=== PATIENT | male | born 1960 ===

== ENCOUNTER 2017-04-23 09:15 | Outpatient (CLI) | payer OTHER | END 2017-04-23 10:15 | disposition home or self-care (01) | LOC: ECT 09:15 | DX: F32.3 Major depressive disorder, single episode, severe with psychotic features (principal); I10 Essential (primary) hypertension; Z79.82 Long term (current) use of aspirin; R73.03 Prediabetes ==

== ENCOUNTER → 2017-04-26 | Outpatient (RCR) | payer OTHER ==
[~2017-04-26] VITALS: Ht 185.4 cm; Wt 105.8 kg
[~2017-04-26] MED LIST: Methohexital Sodium Syr 100mg/10ml IVP ONE; Midazolam 2mg/2ml Inj ONE; Succinylcholine 20mg/ml 10ml vial ONE
== END | disposition home or self-care (01) ==
LOC: ECT 07:01
DX: F32.3 Major depressive disorder, single episode, severe with psychotic features (principal)
CPT/HCPCS: 90870; J0330; J2250

== ENCOUNTER 2017-04-28 05:25 | Outpatient (RCR) | payer OTHER ==
[~2017-04-28] VITALS: Ht 185.4 cm; Wt 105.8 kg
[2017-04-28] MEDS ORDERED: Methohexital Sodium Syr 100mg/10ml IVP ONE ×2 (05:26)
[2017-04-28] MEDS ORDERED: Midazolam 2mg/2ml Inj ONE ×2 (05:26)
[2017-04-28] MEDS ORDERED: Succinylcholine 20mg/ml 10ml vial ONE ×2 (05:26)
[2017-04-28] MEDS ORDERED: NS 550ML IV ONE (05:26)
[2017-04-28] MEDS ORDERED: Ketorolac 60mg Inj ONE ×2 (05:26)
[2017-05-03] MEDS ORDERED: Ketorolac 60mg Inj ONE (07:00)
[2017-05-03] MEDS ORDERED: Methohexital Sodium Syr 100mg/10ml IVP ONE (07:00)
[2017-05-03] MEDS ORDERED: NS 550ML IV ONE (07:00)
[2017-05-03] MEDS ORDERED: Midazolam 2mg/2ml Inj ONE (07:00)
[2017-05-03] MEDS ORDERED: Succinylcholine 20mg/ml 10ml vial ONE (07:00)
[2017-05-05] MEDS ORDERED: Ketorolac 60mg Inj ONE (07:00)
[2017-05-05] MEDS ORDERED: Methohexital Sodium Syr 100mg/10ml IVP ONE (07:00)
[2017-05-05] MEDS ORDERED: Midazolam 2mg/2ml Inj ONE (07:00)
[2017-05-05] MEDS ORDERED: Succinylcholine 20mg/ml 10ml vial ONE (07:00)
[2017-05-05] MEDS ORDERED: NS 550ML IV ONE (07:00)
[2017-05-07] MEDS ORDERED: NS 550ML IV ONE (07:00)
[2017-05-07] MEDS ORDERED: Methohexital Sodium Syr 100mg/10ml IVP ONE (07:00)
[2017-05-07] MEDS ORDERED: Succinylcholine 20mg/ml 10ml vial ONE (07:00)
[2017-05-07] MEDS ORDERED: Ketorolac 60mg Inj ONE (07:00)
[2017-05-07] MEDS ORDERED: Midazolam 2mg/2ml Inj ONE (07:00)
[2017-05-10] MEDS ORDERED: Ketorolac 60mg Inj ONE (07:00)
[2017-05-10] MEDS ORDERED: Midazolam 2mg/2ml Inj ONE (07:00)
[2017-05-10] MEDS ORDERED: NS 550ML IV ONE (07:00)
[2017-05-10] MEDS ORDERED: Methohexital Sodium Syr 100mg/10ml IVP ONE (07:00)
[2017-05-10] MEDS ORDERED: Succinylcholine 20mg/ml 10ml vial ONE (07:00)
[2017-05-10] MEDS ORDERED: Atropine Sulfate 0.4mg/ml inj IVP PRN (09:28)
[2017-05-14] MEDS ORDERED: Midazolam 2mg/2ml Inj ONE (07:00)
[2017-05-14] MEDS ORDERED: NS 550ML IV ONE (07:00)
[2017-05-14] MEDS ORDERED: Ketorolac 60mg Inj ONE (07:00)
[2017-05-14] MEDS ORDERED: Succinylcholine 20mg/ml 10ml vial ONE (07:00)
[2017-05-14] MEDS ORDERED: Methohexital Sodium Syr 100mg/10ml IVP ONE (07:00)
[2017-05-24] MEDS ORDERED: Ketorolac 60mg Inj ONE (09:00)
[2017-05-24] MEDS ORDERED: NS 550ML IV ONE (09:00)
[2017-05-24] MEDS ORDERED: Midazolam 2mg/2ml Inj ONE (09:00)
[2017-05-24] MEDS ORDERED: Succinylcholine 20mg/ml 10ml vial ONE (09:00)
[2017-05-24] MEDS ORDERED: Methohexital Sodium Syr 100mg/10ml IVP ONE (09:00)
== END 2017-05-27 | disposition home or self-care (01) ==
LOC: ECT 05:25
DX: F32.3 Major depressive disorder, single episode, severe with psychotic features (principal)
CPT/HCPCS: 90870; J0330; J2250; J7040

== ENCOUNTER 2017-06-07 08:55 | Outpatient (RCR) | payer OTHER ==
[~2017-06-07] VITALS: Ht 185.4 cm; Wt 105.7 kg
[2017-06-07] MEDS ORDERED: Succinylcholine 20mg/ml 10ml vial ONE (08:56)
[2017-06-07] MEDS ORDERED: Midazolam 2mg/2ml Inj ONE (08:56)
[2017-06-07] MEDS ORDERED: Ketorolac 60mg Inj ONE (08:56)
[2017-06-07] MEDS ORDERED: Methohexital Sodium Syr 100mg/10ml IVP ONE (08:56)
[2017-06-07] MEDS ORDERED: NS 500ML IV ONE (08:56)
[2017-06-07] MEDS ORDERED: Sodium Chloride 500ML 500 ML IV ONE (09:12)
== END 2017-06-26 | disposition home or self-care (01) ==
LOC: ECT 08:55
DX: F32.3 Major depressive disorder, single episode, severe with psychotic features (principal)
CPT/HCPCS: 90870; J0330; J2250; J7040

== ENCOUNTER 2017-06-28 07:14 | Outpatient (RCR) | payer OTHER ==
[~2017-06-28] VITALS: Ht 185.4 cm; Wt 105.7 kg
[2017-06-28] MEDS ORDERED: Midazolam 2mg/2ml Inj ONE (07:15)
[2017-06-28] MEDS ORDERED: Succinylcholine 20mg/ml 10ml vial ONE (07:15)
[2017-06-28] MEDS ORDERED: Ketorolac 60mg Inj ONE (07:15)
[2017-06-28] MEDS ORDERED: Methohexital Sodium Syr 100mg/10ml IVP ONE (07:15)
[2017-06-28] MEDS ORDERED: NS 500ML IV ONE (07:15)
[2017-06-28] MEDS ORDERED: Sodium Chloride 500ML 500 ML IV ONE (08:21)
[2017-07-26] MEDS ORDERED: Methohexital Sodium Syr 100mg/10ml IVP ONE (07:00)
[2017-07-26] MEDS ORDERED: Succinylcholine 20mg/ml 10ml vial ONE (07:00)
[2017-07-26] MEDS ORDERED: Midazolam 2mg/2ml Inj ONE (07:00)
[2017-07-26] MEDS ORDERED: NS 500ML IV ONE (07:00)
[2017-07-26] MEDS ORDERED: Ketorolac 60mg Inj ONE (07:00)
[2017-07-26] MEDS ORDERED: Sodium Chloride 500ML 500 ML IV ONE (08:14)
[2017-07-26 08:15] VITALS: BP 143/73
[2017-07-26 08:20] VITALS: BP 145/65
[2017-07-26 08:25] VITALS: BP 148/66
[2017-07-26 08:30] VITALS: BP 147/78
== END 2017-07-27 | disposition home or self-care (01) ==
LOC: ECT 07:14
DX: F32.3 Major depressive disorder, single episode, severe with psychotic features (principal)
CPT/HCPCS: 90870; J0330; J2250; J7040

== ENCOUNTER 2017-08-23 05:46 | Outpatient (RCR) | payer OTHER ==
[~2017-08-23] VITALS: Ht 185.4 cm; Wt 105.7 kg
[2017-08-23] MEDS ORDERED: Ketorolac 60mg Inj ONE (05:47)
[2017-08-23] MEDS ORDERED: NS 500ML ONE (05:47)
[2017-08-23] MEDS ORDERED: Midazolam 2mg/2ml Inj ONE (05:47)
[2017-08-23] MEDS ORDERED: Succinylcholine 20mg/ml 10ml vial ONE (05:47)
[2017-08-23] MEDS ORDERED: Methohexital Sodium Syr 100mg/10ml IVP ONE (05:47)
[2017-08-23 07:56] VITALS: BP 128/83
[2017-08-23 08:18] VITALS: BP 147/63
[2017-08-23] MEDS ORDERED: Atropine Sulfate 0.4mg/ml inj IVP PRN (08:19)
[2017-08-23] MEDS ORDERED: Sodium Chloride 500ML 500 ML IV ONE (08:19)
[2017-08-23 08:23] VITALS: BP 151/75
[2017-08-23 08:28] VITALS: BP 149/66
[2017-08-23 08:33] VITALS: BP 156/61
== END 2017-08-26 | disposition home or self-care (01) ==
LOC: ECT 05:46
DX: F32.3 Major depressive disorder, single episode, severe with psychotic features (principal)
CPT/HCPCS: 90870; J0330; J2250; J7040

== ENCOUNTER 2017-09-22 06:03 | Outpatient (RCR) | payer OTHER ==
[~2017-09-22] VITALS: Ht 185.4 cm; Wt 104.8 kg
[2017-09-22] MEDS ORDERED: Midazolam 2mg/2ml Inj ONE (06:04)
[2017-09-22] MEDS ORDERED: NS 500ML ONE (06:04)
[2017-09-22] MEDS ORDERED: Ketorolac 60mg Inj ONE (06:04)
[2017-09-22] MEDS ORDERED: Succinylcholine 20mg/ml 10ml vial ONE (06:04)
[2017-09-22] MEDS ORDERED: Methohexital Sodium Syr 100mg/10ml IVP ONE (06:04)
[2017-09-22 08:21] VITALS: BP 148/87
[2017-09-22] MEDS ORDERED: Sodium Chloride 500ML 500 ML IV ONE (08:38)
[2017-09-22] MEDS ORDERED: Atropine Sulfate 0.4mg/ml inj IVP PRN (08:38)
[2017-09-22 08:40] VITALS: BP 158/73
[2017-09-22 08:45] VITALS: BP 172/77
[2017-09-22 08:50] VITALS: BP 166/84
[2017-09-22 08:55] VITALS: BP 162/74
== END 2017-09-26 | disposition home or self-care (01) ==
LOC: ECT 06:03
DX: F32.3 Major depressive disorder, single episode, severe with psychotic features (principal)
CPT/HCPCS: 90870; J0330; J2250; J7040

== ENCOUNTER 2017-10-20 06:06 | Outpatient (RCR) | payer OTHER ==
[~2017-10-20] VITALS: Ht 185.4 cm; Wt 105.7 kg
[2017-10-20] MEDS ORDERED: Methohexital Sodium Syr 100mg/10ml IVP ONE (06:07)
[2017-10-20] MEDS ORDERED: NS 500ML ONE (06:07)
[2017-10-20] MEDS ORDERED: Succinylcholine 20mg/ml 10ml vial ONE (06:07)
[2017-10-20] MEDS ORDERED: Ketorolac 60mg Inj ONE (06:07)
[2017-10-20] MEDS ORDERED: Midazolam 2mg/2ml Inj ONE (06:07)
[2017-10-20 08:41] VITALS: BP 134/80
[2017-10-20 08:58] VITALS: BP 151/73
[2017-10-20] MEDS ORDERED: Sodium Chloride 500ML 500 ML IV ONE (08:58)
[2017-10-20 09:03] VITALS: BP 135/72
[2017-10-20 09:08] VITALS: BP 152/78
[2017-10-20 09:13] VITALS: BP 151/70
== END 2017-10-27 | disposition home or self-care (01) ==
LOC: ECT 06:06
DX: F32.3 Major depressive disorder, single episode, severe with psychotic features (principal); I10 Essential (primary) hypertension; R73.03 Prediabetes; E78.5 Hyperlipidemia, unspecified; G47.33 Obstructive sleep apnea (adult) (pediatric)
CPT/HCPCS: 90870; J0330; J2250; J7040

== ENCOUNTER 2017-11-17 06:30 | Outpatient (RCR) | payer OTHER ==
[~2017-11-17] VITALS: Ht 185.4 cm; Wt 105.8 kg
[~2017-11-17 06:30] MED LIST changes: +Ketorolac 60mg Inj ONE; +NS 500ML ONE
[2017-11-17 08:56] VITALS: BP 132/83
[2017-11-17] MEDS ORDERED: Sodium Chloride 500ML 500 ML IV ONE (09:11)
[2017-11-17 09:15] VITALS: BP 144/63
[2017-11-17 09:20] VITALS: BP 157/78
[2017-11-17 09:25] VITALS: BP 146/70
[2017-11-17 09:30] VITALS: BP 140/69
== END 2017-11-24 | disposition home or self-care (01) ==
LOC: ECT 06:30
DX: F32.3 Major depressive disorder, single episode, severe with psychotic features (principal)
CPT/HCPCS: 90870; J0330; J2250; J7040

== ENCOUNTER 2017-12-15 05:17 | Outpatient (RCR) | payer OTHER ==
[~2017-12-15] VITALS: Ht 185.4 cm; Wt 105.8 kg
[2017-12-15] MEDS ORDERED: Midazolam 2mg/2ml Inj ONE (05:18)
[2017-12-15] MEDS ORDERED: Ketorolac 60mg Inj ONE (05:18)
[2017-12-15] MEDS ORDERED: Succinylcholine 20mg/ml 10ml vial ONE (05:18)
[2017-12-15] MEDS ORDERED: Methohexital Sodium Syr 100mg/10ml IVP ONE (05:18)
[2017-12-15] MEDS ORDERED: NS 500ML ONE (05:18)
[2017-12-15 08:14] VITALS: BP 136/43
[2017-12-15] MEDS ORDERED: Sodium Chloride 500ML 500 ML IV ONE (08:22)
[2017-12-15 08:30] VITALS: BP 148/67
[2017-12-15 08:35] VITALS: BP 144/64
[2017-12-15 08:40] VITALS: BP 148/74
[2017-12-15 08:45] VITALS: BP 149/79
== END 2017-12-25 | disposition home or self-care (01) ==
LOC: ECT 05:17
DX: F32.3 Major depressive disorder, single episode, severe with psychotic features (principal)
CPT/HCPCS: 90870; J0330; J2250; J7040

== ENCOUNTER 2018-01-26 05:22 | Outpatient (RCR) | payer OTHER ==
[~2018-01-26] VITALS: Ht 185.4 cm; Wt 105.7 kg
[2018-01-26] MEDS ORDERED: Methohexital Sodium Syr 100mg/10ml IVP ONE ×2 (05:23)
[2018-01-26] MEDS ORDERED: Midazolam 2mg/2ml Inj ONE ×3 (05:23)
[2018-01-26] MEDS ORDERED: Methohexital Sodium 500mg Vial IVP ONE (05:23)
[2018-01-26] MEDS ORDERED: NS 500ML ONE ×3 (05:23)
[2018-01-26] MEDS ORDERED: Succinylcholine 20mg/ml 10ml vial ONE ×3 (05:23)
[2018-01-26] MEDS ORDERED: Ketorolac 60mg Inj ONE ×3 (05:23)
[2018-01-26 08:11] VITALS: BP 169/97
[2018-01-26 08:30] VITALS: BP 154/68
[2018-01-26 08:35] VITALS: BP 136/60
[2018-01-26 08:40] VITALS: BP 159/78
[2018-01-26 08:45] VITALS: BP 142/79
[2018-01-27] MEDS ORDERED: Sodium Chloride 500ML 500 ML IV ONE (08:25)
[2018-01-28] MEDS ORDERED: Midazolam 2mg/2ml Inj ONE (07:00)
[2018-01-28] MEDS ORDERED: Succinylcholine 20mg/ml 10ml vial ONE (07:00)
[2018-01-28] MEDS ORDERED: Ketorolac 60mg Inj ONE (07:00)
[2018-01-28] MEDS ORDERED: NS 500ML ONE (07:00)
[2018-01-28] MEDS ORDERED: Methohexital Sodium Syr 100mg/10ml IVP ONE (07:00)
[2018-01-28 07:38] VITALS: BP 135/87
[2018-01-28] MEDS ORDERED: Sodium Chloride 500ML 500 ML IV ONE (07:53)
[2018-01-28 07:55] VITALS: BP 148/64
[2018-01-28 08:00] VITALS: BP 141/69
[2018-01-28 08:05] VITALS: BP 150/69
[2018-01-28 08:10] VITALS: BP 136/85
[2018-01-31] MEDS ORDERED: Ketorolac 60mg Inj ONE (06:00)
[2018-01-31] MEDS ORDERED: NS 500ML ONE (06:00)
[2018-01-31] MEDS ORDERED: Succinylcholine 20mg/ml 10ml vial ONE (06:00)
[2018-01-31] MEDS ORDERED: Methohexital Sodium Syr 100mg/10ml IVP ONE (06:00)
[2018-01-31] MEDS ORDERED: Midazolam 2mg/2ml Inj ONE (06:00)
[2018-01-31 09:04] VITALS: BP 126/89
[2018-01-31] MEDS ORDERED: Sodium Chloride 500ML 500 ML IV ONE (09:17)
[2018-01-31 09:20] VITALS: BP 151/69
[2018-01-31 09:25] VITALS: BP 145/73
[2018-01-31 09:30] VITALS: BP 167/87
[2018-01-31 09:35] VITALS: BP 146/80
[2018-02-02 09:43] VITALS: BP 134/91
[2018-02-02 09:55] VITALS: BP 145/61
[2018-02-02] MEDS ORDERED: Sodium Chloride 500ML 500 ML IV ONE (09:55)
[2018-02-02 10:00] VITALS: BP 151/72
[2018-02-02 10:05] VITALS: BP 143/71
[2018-02-02 10:10] VITALS: BP 142/88
[2018-02-04] MEDS ORDERED: Succinylcholine 20mg/ml 10ml vial ONE (06:00)
[2018-02-04] MEDS ORDERED: Ketorolac 60mg Inj ONE (06:00)
[2018-02-04] MEDS ORDERED: Methohexital Sodium Syr 100mg/10ml IVP ONE (06:00)
[2018-02-04] MEDS ORDERED: Midazolam 2mg/2ml Inj ONE (06:00)
[2018-02-04] MEDS ORDERED: NS 500ML ONE (06:00)
[2018-02-04 07:44] VITALS: BP 137/83
[2018-02-04] MEDS ORDERED: Sodium Chloride 500ML 500 ML IV ONE (08:00)
[2018-02-04 08:05] VITALS: BP 160/71
[2018-02-04 08:10] VITALS: BP 144/72
[2018-02-04 08:15] VITALS: BP 146/75
[2018-02-04 08:20] VITALS: BP 136/75
[2018-02-07] MEDS ORDERED: NS 500ML ONE (07:00)
[2018-02-07] MEDS ORDERED: Methohexital Sodium Syr 100mg/10ml IVP ONE (07:00)
[2018-02-07] MEDS ORDERED: Ketorolac 60mg Inj ONE (07:00)
[2018-02-07] MEDS ORDERED: Midazolam 2mg/2ml Inj ONE (07:00)
[2018-02-07] MEDS ORDERED: Succinylcholine 20mg/ml 10ml vial ONE (07:00)
[2018-02-07] MEDS ORDERED: Atropine Sulfate 0.4mg/ml inj IVP PRN (07:27)
[2018-02-07] MEDS ORDERED: Sodium Chloride 500ML 500 ML IV ONE (07:27)
[2018-02-07 07:30] VITALS: BP 136/73
[2018-02-07 07:35] VITALS: BP 140/70
[2018-02-07 07:40] VITALS: BP 136/76
[2018-02-07 07:45] VITALS: BP 131/69
[2018-02-07 07:50] VITALS: BP 136/72
[2018-02-07 07:55] VITALS: BP 123/81
[2018-02-09] MEDS ORDERED: Midazolam 2mg/2ml Inj ONE (07:00)
[2018-02-09] MEDS ORDERED: Methohexital Sodium Syr 100mg/10ml IVP ONE (07:00)
[2018-02-09] MEDS ORDERED: Succinylcholine 20mg/ml 10ml vial ONE (07:00)
[2018-02-09] MEDS ORDERED: NS 500ML ONE (07:00)
[2018-02-09] MEDS ORDERED: Ketorolac 60mg Inj ONE (07:00)
[2018-02-09 08:28] VITALS: BP 137/83
[2018-02-09] MEDS ORDERED: Sodium Chloride 500ML 500 ML IV ONE (08:48)
[2018-02-09] MEDS ORDERED: Atropine Sulfate 0.4mg/ml inj IVP PRN (08:48)
[2018-02-09 08:50] VITALS: BP 166/77
[2018-02-09 08:55] VITALS: BP 154/74
[2018-02-09 09:00] VITALS: BP 139/62
[2018-02-09 09:05] VITALS: BP 147/73
[2018-02-11] MEDS ORDERED: NS 500ML ONE (07:00)
[2018-02-11] MEDS ORDERED: Methohexital Sodium Syr 100mg/10ml IVP ONE (07:00)
[2018-02-11] MEDS ORDERED: Succinylcholine 20mg/ml 10ml vial ONE (07:00)
[2018-02-11] MEDS ORDERED: Midazolam 2mg/2ml Inj ONE (07:00)
[2018-02-11] MEDS ORDERED: Ketorolac 60mg Inj ONE (07:00)
[2018-02-11 07:14] VITALS: BP 142/86
[2018-02-11] MEDS ORDERED: Sodium Chloride 500ML 500 ML IV ONE (07:32)
[2018-02-11 07:35] VITALS: BP 146/88
[2018-02-11 07:40] VITALS: BP 160/82
[2018-02-11 07:45] VITALS: BP 155/61
[2018-02-11 07:50] VITALS: BP 148/76
[2018-02-14] MEDS ORDERED: Midazolam 2mg/2ml Inj ONE (07:00)
[2018-02-14] MEDS ORDERED: Ketorolac 60mg Inj ONE (07:00)
[2018-02-14] MEDS ORDERED: NS 500ML ONE (07:00)
[2018-02-14] MEDS ORDERED: Methohexital Sodium Syr 100mg/10ml IVP ONE (07:00)
[2018-02-14] MEDS ORDERED: Succinylcholine 20mg/ml 10ml vial ONE (07:00)
[2018-02-14 08:57] VITALS: BP 139/88
[2018-02-14] MEDS ORDERED: Sodium Chloride 500ML 500 ML IV ONE (09:09)
[2018-02-14 09:10] VITALS: BP 152/72
[2018-02-14 09:15] VITALS: BP 149/79
[2018-02-14 09:20] VITALS: BP 139/70
[2018-02-14 09:25] VITALS: BP 139/70
[2018-02-16 08:26] VITALS: BP 136/88
[2018-02-16 08:43] VITALS: BP 136/77
[2018-02-16] MEDS ORDERED: Atropine Sulfate 0.4mg/ml inj IVP PRN (08:43)
[2018-02-16] MEDS ORDERED: Sodium Chloride 500ML 500 ML IV ONE (08:43)
[2018-02-16 08:48] VITALS: BP 142/75
[2018-02-16 08:53] VITALS: BP 143/69
[2018-02-16 08:58] VITALS: BP 164/82
[2018-02-16 09:03] VITALS: BP 152/82
[2018-02-23] MEDS ORDERED: NS 500ML ONE (07:00)
[2018-02-23] MEDS ORDERED: Midazolam 2mg/2ml Inj ONE (07:00)
[2018-02-23] MEDS ORDERED: Succinylcholine 20mg/ml 10ml vial ONE (07:00)
[2018-02-23] MEDS ORDERED: Methohexital Sodium Syr 100mg/10ml IVP ONE (07:00)
[2018-02-23] MEDS ORDERED: Ketorolac 60mg Inj ONE (07:00)
[2018-02-23 09:12] VITALS: BP 145/92
[2018-02-23 09:28] VITALS: BP 145/92
[2018-02-23] MEDS ORDERED: Sodium Chloride 500ML 500 ML IV ONE (09:28)
[2018-02-23 09:33] VITALS: BP 148/82
[2018-02-23 09:38] VITALS: BP 147/71
[2018-02-23 09:43] VITALS: BP 158/97
== END 2018-02-24 | disposition home or self-care (01) ==
LOC: ECT 05:22
DX: F32.3 Major depressive disorder, single episode, severe with psychotic features (principal)
CPT/HCPCS: 90870; J0330; J2250; J3490; J7040

== ENCOUNTER 2018-03-07 07:58 | Outpatient (RCR) | payer OTHER ==
[~2018-03-07] VITALS: Ht 185.4 cm; Wt 105.7 kg
[2018-03-07] MEDS ORDERED: Succinylcholine 20mg/ml 10ml vial ONE (07:59)
[2018-03-07] MEDS ORDERED: Midazolam 2mg/2ml Inj ONE (07:59)
[2018-03-07] MEDS ORDERED: Methohexital Sodium Syr 100mg/10ml IVP ONE (07:59)
[2018-03-07] MEDS ORDERED: NS 500ML ONE (07:59)
[2018-03-07] MEDS ORDERED: Ketorolac 60mg Inj ONE (07:59)
[2018-03-07 08:10] VITALS: BP 157/98
[2018-03-07] MEDS ORDERED: Sodium Chloride 500ML 500 ML IV ONE (08:33)
[2018-03-07] MEDS ORDERED: Atropine Sulfate 0.4mg/ml inj IVP PRN (08:33)
[2018-03-07 08:35] VITALS: BP 135/75
[2018-03-07 08:40] VITALS: BP 132/69
[2018-03-07 08:45] VITALS: BP 134/69
[2018-03-07 08:50] VITALS: BP 127/80
[2018-03-23] MEDS ORDERED: Midazolam 2mg/2ml Inj ONE (07:00)
[2018-03-23] MEDS ORDERED: Methohexital Sodium Syr 100mg/10ml IVP ONE (07:00)
[2018-03-23] MEDS ORDERED: Succinylcholine 20mg/ml 10ml vial ONE (07:00)
[2018-03-23] MEDS ORDERED: NS 500ML ONE (07:00)
[2018-03-23] MEDS ORDERED: Ketorolac 60mg Inj ONE (07:00)
[2018-03-23 07:45] VITALS: BP 153/95
[2018-03-23 08:05] VITALS: BP 159/75
[2018-03-23 08:10] VITALS: BP 158/76
[2018-03-23 08:15] VITALS: BP 150/78
[2018-03-23 08:20] VITALS: BP 158/78
[2018-03-23 10:03] VITALS: BP 153/95
[2018-03-23] MEDS ORDERED: Sodium Chloride 500ML 500 ML IV ONE (11:05)
== END 2018-03-26 | disposition home or self-care (01) ==
LOC: ECT 07:58
DX: F32.3 Major depressive disorder, single episode, severe with psychotic features (principal)
CPT/HCPCS: 90870; J0330; J2250; J7040

== ENCOUNTER 2018-04-13 05:08 | Outpatient (RCR) | payer OTHER ==
[~2018-04-13] VITALS: Ht 185.4 cm; Wt 105.7 kg
[2018-04-13] MEDS ORDERED: Ketorolac 60mg Inj ONE (05:09)
[2018-04-13] MEDS ORDERED: Midazolam 2mg/2ml Inj ONE (05:09)
[2018-04-13] MEDS ORDERED: Succinylcholine 20mg/ml 10ml vial ONE (05:09)
[2018-04-13] MEDS ORDERED: Methohexital Sodium Syr 100mg/10ml IVP ONE (05:09)
[2018-04-13] MEDS ORDERED: NS 500ML ONE (05:09)
[2018-04-13 07:46] VITALS: BP 158/97
[2018-04-13] MEDS ORDERED: Sodium Chloride 500ML 500 ML IV ONE (08:01)
[2018-04-13 08:05] VITALS: BP 146/64
[2018-04-13 08:10] VITALS: BP 162/83
[2018-04-13 08:15] VITALS: BP 153/79
[2018-04-13 08:20] VITALS: BP 150/83
== END 2018-04-26 | disposition home or self-care (01) ==
LOC: ECT 05:08
DX: F32.3 Major depressive disorder, single episode, severe with psychotic features (principal)
CPT/HCPCS: 90870; J0330; J2250; J7040

== ENCOUNTER 2018-05-11 06:16 | Outpatient (RCR) | payer OTHER ==
[~2018-05-11] VITALS: Ht 30.5 cm; Wt 0.5 kg
[2018-05-11] MEDS ORDERED: Ketorolac 60mg Inj IM ONE (08:00)
[2018-05-11] MEDS ORDERED: Methohexital Sodium Syr 100mg/10ml IVP ONE (08:00)
[2018-05-11] MEDS ORDERED: Succinylcholine 20mg/ml 10ml vial ONE (08:00)
[2018-05-11] MEDS ORDERED: NS 500ML ONE (08:00)
[2018-05-11] MEDS ORDERED: Midazolam 2mg/2ml Inj ONE (08:00)
[2018-05-11 08:29] VITALS: BP 154/93
[2018-05-11] MEDS ORDERED: Sodium Chloride 500ML 500 ML IV ONE (08:50)
[2018-05-11 08:55] VITALS: BP 148/66
[2018-05-11 09:00] VITALS: BP 163/70
[2018-05-11 09:05] VITALS: BP 157/73
[2018-05-11 09:10] VITALS: BP 144/87
== END 2018-05-27 | disposition home or self-care (01) ==
LOC: ECT 06:16
DX: F32.3 Major depressive disorder, single episode, severe with psychotic features (principal)
CPT/HCPCS: 90870; J0330; J2250; J7040

== ENCOUNTER 2018-06-15 06:10 | Outpatient (RCR) | payer OTHER ==
[~2018-06-15] VITALS: Ht 30.5 cm; Wt 0.5 kg
[2018-06-15] MEDS ORDERED: Ketorolac 60mg Inj IM ONE (06:11)
[2018-06-15] MEDS ORDERED: Succinylcholine 20mg/ml 10ml vial ONE (06:11)
[2018-06-15] MEDS ORDERED: Midazolam 2mg/2ml Inj ONE (06:11)
[2018-06-15] MEDS ORDERED: Methohexital Sodium Syr 100mg/10ml IVP ONE (06:11)
[2018-06-15] MEDS ORDERED: NS 500ML ONE (06:11)
[2018-06-15 08:40] VITALS: BP 156/96
[2018-06-15] MEDS ORDERED: Sodium Chloride 500ML 500 ML IV ONE (08:53)
[2018-06-15 08:55] VITALS: BP 153/82
[2018-06-15 09:00] VITALS: BP 142/73
[2018-06-15 09:05] VITALS: BP 147/76
[2018-06-15 09:10] VITALS: BP 168/73
== END 2018-06-26 | disposition home or self-care (01) ==
LOC: ECT 06:10
DX: F32.3 Major depressive disorder, single episode, severe with psychotic features (principal)
CPT/HCPCS: 90870; J0330; J2250; J7040

== ENCOUNTER 2018-07-13 06:13 | Outpatient (RCR) | payer OTHER ==
[~2018-07-13] VITALS: Ht 30.5 cm; Wt 0.5 kg
[2018-07-13] MEDS ORDERED: Methohexital Sodium Syr 100mg/10ml IVP ONE (06:14)
[2018-07-13] MEDS ORDERED: Succinylcholine 20mg/ml 10ml vial ONE (06:14)
[2018-07-13] MEDS ORDERED: Midazolam 2mg/2ml Inj ONE (06:14)
[2018-07-13] MEDS ORDERED: Ketorolac 60mg Inj IM ONE (06:14)
[2018-07-13] MEDS ORDERED: NS 500ML ONE (06:14)
[2018-07-13 09:02] VITALS: BP 156/108
[2018-07-13] MEDS ORDERED: Sodium Chloride 500ML 500 ML IV ONE (09:16)
[2018-07-13 09:20] VITALS: BP 151/81
[2018-07-13 09:25] VITALS: BP 168/82
[2018-07-13 09:30] VITALS: BP 162/79
[2018-07-13 09:35] VITALS: BP 150/87
== END 2018-07-27 | disposition home or self-care (01) ==
LOC: ECT 06:13
DX: F32.3 Major depressive disorder, single episode, severe with psychotic features (principal)
CPT/HCPCS: 90870; J0330; J2250; J7040

== ENCOUNTER 2018-08-10 04:41 | Outpatient (RCR) | payer OTHER ==
[~2018-08-10] VITALS: Ht 185.4 cm; Wt 105.7 kg
[2018-08-10] MEDS ORDERED: Ketorolac 60mg Inj IM ONE (04:42)
[2018-08-10] MEDS ORDERED: Midazolam 2mg/2ml Inj ONE (04:42)
[2018-08-10] MEDS ORDERED: Succinylcholine 20mg/ml 10ml vial ONE (04:42)
[2018-08-10] MEDS ORDERED: NS 500ML ONE (04:42)
[2018-08-10] MEDS ORDERED: Methohexital Sodium Syr 100mg/10ml IVP ONE (04:42)
[2018-08-10 08:08] VITALS: BP 146/87
[2018-08-10] MEDS ORDERED: Sodium Chloride 500ML 500 ML IV ONE (08:21)
[2018-08-10 08:25] VITALS: BP 148/76
[2018-08-10 08:30] VITALS: BP 153/77
[2018-08-10 08:35] VITALS: BP 153/77
[2018-08-10 08:40] VITALS: BP 154/72
== END 2018-08-26 | disposition home or self-care (01) ==
LOC: ECT 04:41
DX: F32.3 Major depressive disorder, single episode, severe with psychotic features (principal)
CPT/HCPCS: 90870; J0330; J2250; J7040

== ENCOUNTER 2018-09-14 05:05 | Outpatient (RCR) | payer OTHER ==
[~2018-09-14] VITALS: Ht 185.4 cm; Wt 105.8 kg
[2018-09-14] MEDS ORDERED: Methohexital Sodium Syr 100mg/10ml IVP ONE (05:06)
[2018-09-14] MEDS ORDERED: Succinylcholine 20mg/ml 10ml vial ONE (05:06)
[2018-09-14] MEDS ORDERED: Ketorolac 60mg Inj IM ONE (05:06)
[2018-09-14] MEDS ORDERED: NS 500ML ONE (05:06)
[2018-09-14] MEDS ORDERED: Midazolam 2mg/2ml Inj ONE (05:06)
[2018-09-14 08:10] VITALS: BP 156/92
[2018-09-14] MEDS ORDERED: Sodium Chloride 500ML 500 ML IV ONE (08:24)
[2018-09-14 08:25] VITALS: BP 149/69
[2018-09-14 08:30] VITALS: BP 156/65
[2018-09-14 08:35] VITALS: BP 148/56
[2018-09-14 08:40] VITALS: BP 150/67
== END 2018-09-26 | disposition home or self-care (01) ==
LOC: ECT 05:05
DX: F32.3 Major depressive disorder, single episode, severe with psychotic features (principal); K76.0 Fatty (change of) liver, not elsewhere classified
CPT/HCPCS: 90870; J0330; J2250; J7040

== ENCOUNTER 2018-10-12 06:22 | Outpatient (RCR) | payer OTHER ==
[~2018-10-12] VITALS: Ht 185.4 cm; Wt 105.8 kg
[2018-10-12] MEDS ORDERED: Succinylcholine 20mg/ml 10ml vial ONE (06:23)
[2018-10-12] MEDS ORDERED: NS 500ML ONE (06:23)
[2018-10-12] MEDS ORDERED: Ketorolac 60mg Inj IM ONE (06:23)
[2018-10-12] MEDS ORDERED: Midazolam 2mg/2ml Inj ONE (06:23)
[2018-10-12] MEDS ORDERED: Methohexital Sodium Syr 100mg/10ml IVP ONE (06:23)
[2018-10-12 08:20] VITALS: BP 157/93
[2018-10-12 08:40] VITALS: BP 146/82
[2018-10-12 08:45] VITALS: BP 152/76
[2018-10-12 08:50] VITALS: BP 135/74
[2018-10-12 08:55] VITALS: BP 142/70
== END 2018-10-27 | disposition home or self-care (01) ==
LOC: ECT 06:22
DX: F32.3 Major depressive disorder, single episode, severe with psychotic features (principal); I10 Essential (primary) hypertension; R73.03 Prediabetes; E78.5 Hyperlipidemia, unspecified; G47.33 Obstructive sleep apnea (adult) (pediatric)
CPT/HCPCS: 90870; J0330; J2250; J7040

== ENCOUNTER 2018-11-09 04:41 | Outpatient (RCR) | payer OTHER ==
[~2018-11-09] VITALS: Ht 30.5 cm; Wt 0.5 kg
[2018-11-09] MEDS ORDERED: NS 500ML ONE (04:42)
[2018-11-09] MEDS ORDERED: Midazolam 2mg/2ml Inj ONE (04:42)
[2018-11-09] MEDS ORDERED: Methohexital Sodium Syr 100mg/10ml IVP ONE (04:42)
[2018-11-09] MEDS ORDERED: Succinylcholine 20mg/ml 10ml vial ONE (04:42)
[2018-11-09] MEDS ORDERED: Ketorolac 60mg Inj IM ONE (04:42)
[2018-11-09 07:59] VITALS: BP 160/97
[2018-11-09 08:15] VITALS: BP 147/69
[2018-11-09 08:20] VITALS: BP 141/79
[2018-11-09 08:25] VITALS: BP 144/72
[2018-11-09 08:30] VITALS: BP 146/74
== END 2018-11-24 | disposition home or self-care (01) ==
LOC: ECT 04:41
DX: F32.3 Major depressive disorder, single episode, severe with psychotic features (principal)
CPT/HCPCS: 90870; J0330; J2250; J7040

== ENCOUNTER 2018-12-14 05:51 | Outpatient (RCR) | payer OTHER ==
[~2018-12-14] VITALS: Ht 30.5 cm; Wt 0.5 kg
[2018-12-14] MEDS ORDERED: Succinylcholine 20mg/ml 10ml vial ONE (05:52)
[2018-12-14] MEDS ORDERED: Methohexital Sodium Syr 100mg/10ml IVP ONE (05:52)
[2018-12-14] MEDS ORDERED: Midazolam 2mg/2ml Inj ONE (05:52)
[2018-12-14] MEDS ORDERED: NS 500ML ONE (05:52)
[2018-12-14] MEDS ORDERED: Ketorolac 60mg Inj IM ONE (05:52)
[2018-12-14 07:54] VITALS: BP 157/67
[2018-12-14 08:05] VITALS: BP 159/71
[2018-12-14 08:10] VITALS: BP 153/75
[2018-12-14 08:15] VITALS: BP 152/76
[2018-12-14 08:20] VITALS: BP 146/72
== END 2018-12-25 | disposition home or self-care (01) ==
LOC: ECT 05:51
DX: F32.3 Major depressive disorder, single episode, severe with psychotic features (principal)
CPT/HCPCS: 90870; J0330; J2250; J7040

== ENCOUNTER 2019-01-11 07:31 | Outpatient (RCR) | payer OTHER ==
[~2019-01-11] VITALS: Ht 185.4 cm; Wt 105.8 kg
[2019-01-11] MEDS ORDERED: Succinylcholine 20mg/ml 10ml vial ONE (07:32)
[2019-01-11] MEDS ORDERED: Methohexital Sodium Syr 100mg/10ml IVP ONE (07:32)
[2019-01-11] MEDS ORDERED: Ketorolac 60mg Inj IM ONE (07:32)
[2019-01-11] MEDS ORDERED: Midazolam 2mg/2ml Inj ONE (07:32)
[2019-01-11] MEDS ORDERED: NS 500ML ONE (07:32)
[2019-01-11 08:02] VITALS: BP 155/95
[2019-01-11 08:20] VITALS: BP 136/62
[2019-01-11 08:25] VITALS: BP 146/70
[2019-01-11 08:30] VITALS: BP 138/76
[2019-01-11 08:35] VITALS: BP 141/74
== END 2019-01-24 | disposition home or self-care (01) ==
LOC: ECT 07:31
DX: F32.3 Major depressive disorder, single episode, severe with psychotic features (principal)
CPT/HCPCS: 90870; J0330; J2250; J7040

== ENCOUNTER 2019-02-08 06:54 | Outpatient (RCR) | payer OTHER ==
[~2019-02-08] VITALS: Ht 30.5 cm; Wt 0.5 kg
[2019-02-08] MEDS ORDERED: NS 500ML ONE (06:55)
[2019-02-08] MEDS ORDERED: Ketorolac 60mg Inj IM ONE (06:55)
[2019-02-08] MEDS ORDERED: Succinylcholine 20mg/ml 10ml vial ONE (06:55)
[2019-02-08] MEDS ORDERED: Midazolam 2mg/2ml Inj ONE (06:55)
[2019-02-08] MEDS ORDERED: Methohexital Sodium Syr 100mg/10ml IVP ONE (06:55)
[2019-02-08 08:04] VITALS: BP 152/98
[2019-02-08 08:20] VITALS: BP 140/68
[2019-02-08 08:25] VITALS: BP 153/78
[2019-02-08 08:30] VITALS: BP 152/71
[2019-02-08 08:35] VITALS: BP 139/79
== END 2019-02-24 | disposition home or self-care (01) ==
LOC: ECT 06:54
DX: F32.3 Major depressive disorder, single episode, severe with psychotic features (principal)
CPT/HCPCS: 90870; J0330; J2250; J7040

== ENCOUNTER 2019-03-15 04:35 | Outpatient (RCR) | payer OTHER ==
[~2019-03-15] VITALS: Ht 185.4 cm; Wt 105.7 kg
[2019-03-15] MEDS ORDERED: Succinylcholine 20mg/ml 10ml vial ONE (04:36)
[2019-03-15] MEDS ORDERED: NS 500ML ONE (04:36)
[2019-03-15] MEDS ORDERED: Methohexital Sodium Syr 100mg/10ml IVP ONE (04:36)
[2019-03-15] MEDS ORDERED: Ketorolac 60mg Inj IM ONE (04:36)
[2019-03-15 07:38] VITALS: BP 168/94
[2019-03-15 07:53] VITALS: BP 149/67
[2019-03-15 07:58] VITALS: BP 138/75
[2019-03-15 08:03] VITALS: BP 156/75
[2019-03-15 08:08] VITALS: BP 159/62
== END 2019-03-26 | disposition home or self-care (01) ==
LOC: ECT 04:35
DX: F32.3 Major depressive disorder, single episode, severe with psychotic features (principal)
CPT/HCPCS: 90870; J0330; J7040

== ENCOUNTER 2019-04-19 04:45 | Outpatient (RCR) | payer OTHER | END 2019-04-26 | disposition home or self-care (01) | LOC: ECT 04:45 | DX: F32.3 Major depressive disorder, single episode, severe with psychotic features (principal); Z53.9 Procedure and treatment not carried out, unspecified reason ==